=== PATIENT | male | born 1995 ===

== ENCOUNTER 2020-08-03 12:35 | Outpatient (REF) | payer SELFPAY | END 2020-08-03 12:36 | disposition home or self-care (01) | LOC: HO.LAB 12:35 | PROVIDERS: Visit Provider Internal Medicine | DX: Z20.828 Contact with and (suspected) exposure to other viral communicable diseases (principal) | CPT/HCPCS: C9803; U0003 ==

== ENCOUNTER 2020-08-16 10:58 | Outpatient (REF) | payer SELFPAY | END 2020-08-16 10:59 | disposition home or self-care (01) | LOC: HO.LAB 10:58 | PROVIDERS: Visit Provider Internal Medicine | DX: Z20.828 Contact with and (suspected) exposure to other viral communicable diseases (principal) | CPT/HCPCS: C9803; U0003 ==

== ENCOUNTER 2022-05-13 05:51 | Emergency (ER) | payer SELFPAY ==
--- NOTE | ~2022-05-13 | XR_ITS ---
EXAMINATION: XR WRIST, RIGHT CLINICAL INFORMATION: Pain and swelling COMPARISON: None TECHNIQUE: PA, lateral, and oblique views of the right wrist. FINDINGS: No fracture or dislocation. The carpal rows are well aligned. Joint spaces are maintained. The soft tissues appear unremarkable. XR/XR wrist RT 2V IMPRESSION: No fracture or malalignment.
[2022-05-13 06:27] VITALS: BP 126/75; PULSE 58; RESP 16; TEMP 36.5; O2SAT 97; BMI 26.3
--- NOTE | 2022-05-13 09:20 | ED_ITS ---
HPI - Extremity Problem General Chief complaint: Extremity Injury, Upper Stated complaint: r wrist inj Time Seen by Provider: 05/13/22 09:19 Source: patient Mode of arrival: ambulatory Limitations: no limitations History of Present Illness HPI Narrative: Patient presents emergency department for evaluation of right wrist pain and swelling. 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 Denies numbness or tingling. He states that the swelling has actually come down some with the use of ice. The pain is now intermittent. MD Complaint: extremity pain and extremity swelling Onset (ago): day(s) Pain Consistency: intermittent Location: right and upper extremity Severity scale (1-10): 2 Quality: aching Radiation: none Relieving factors: cold therapy Exacerbating factors: range of motion Associated symptoms: denies other symptoms Related Data Allergies Allergy/AdvReac Type Severity Reaction Status Date / Time No Known Allergies Allergy Unverified 05/13/22 06:27 Review of Systems Review of Systems: Musculoskeletal: Positive wrist pain Yes all other systems are reviewed and are negative PMFSH Past Medical History Attestation statement: The following information was validated with the patient. Source: old records reviewed Social History Social History Advance Directives: No Advance Directives Information Provided: No Physical Exam Vital Signs: Vital Signs: Last Vital Signs Temp 97.7 F 05/13/22 06:27 Pulse 58 05/13/22 06:27 Resp 16 05/13/22 06:27 BP 126/75 05/13/22 06:27 Pulse Ox 97 05/13/22 06:27 O2 Del Method 05/13/22 06:27 BMI result Body Mass Index 26.3 Vital signs have been reviewed as normal and appeared to be correct. Blood pressure normal.? Heart rate normal.? Respiration rate normal. Temperature normal.? Oxygen saturation normal. Appearance: Alert.?Oriented to person, place and time. No acute distress.?Normal affect. Neck: Normal inspection.? Neck supple.?? CVS: Heart sounds normal. Normal heart rate and rhythm.? Pulses normal.?? Respiratory: No respiratory distress.? Lung sounds clear to auscultation bilater ally?? Abdomen: Soft and non-tender. Skin: Skin warm and dry.? Normal skin color.? Extremities: No lower extremity edema.? Localized swelling and tenderness to on a dorsal forearm dressed superior to the wrist Neuro: Moves all extremities spontaneously. Sensation intact bilaterally. No motor deficits Ambulates with normal steady gait. Course Course Course Narrative: Patient is a 26-year-old male who presents emergency department for evaluation of traumatic right wrist pain. XR reveals no acute fracture dislocation. Neurovascularly intact distally. Mild localized swelling and tenderness upon palpation. Consistent with sprain of the wrist. Discussed rest, ice, compression with Paul bandage, Tylenol/ibuprofen as needed for pain. Discussed worrisome signs and symptoms to return back to emergency department for. Outpatient follow-up with his primary care provider as needed. Patient verbalized understanding was discharged home in stable condition. MDM - Extremity (Nontraumatic) Medical Records Attestation: I reviewed the patient's medical records. Imaging Data wrist XR: Radiologist's impression: XR/XR wrist RT 2V IMPRESSION: No fracture or malalignment. Discharge Plan Discharge Clinical Impression: Sprain and strain of wrist Patient Disposition: Home, Self-Care Instructions: Wrist Sprain (ED) Additional Instructions: Apply ice, use Paul bandage for compression, You can take ibuprofen 200 mg, 3 tablets (600mg) every 6-8 hours as needed for pain, in addition to Tylenol 500 mg, 2 tablets (1,000mg) every 4-6 hours as needed for pain, but not to exceed 3 doses daily (3,000mg).? Return to the emergency department any new or worsening symptoms or concerns
== END 2022-05-13 09:59 | disposition home or self-care (01) ==
PROVIDERS: Emergency Provider Emergency Medicine
DX: S66.911A Strain of unspecified muscle, fascia and tendon at wrist and hand level, right hand, initial encounter (principal); S63.501A Unspecified sprain of right wrist, initial encounter; X50.0XXA Overexertion from strenuous movement or load, initial encounter; Y93.89 Activity, other specified; Y92.039 Unspecified place in apartment as the place of occurrence of the external cause; Y99.9 Unspecified external cause status
CPT/HCPCS: 73100; 99283

== ENCOUNTER 2024-02-04 02:02 | Emergency (ER) | payer OTHER, SELFPAY ==
--- NOTE | 2024-02-04 | ECG_ITS ---
Test Reason : CHEST PAIN Blood Pressure : / mmHG Vent. Rate : 071 BPM Atrial Rate : 071 BPM P-R Int : 164 ms QRS Dur : 074 ms QT Int : 372 ms P-R-T Axes : 013 -12 -05 degrees QTc Int : 404 ms Normal sinus rhythm Minimal voltage criteria for LVH, may be normal variant ( R in aVL ) Borderline ECG No previous ECGs available Referred By: Generic ED Physician Electronically Signed By:RONNIE POP MD
--- NOTE | ~2024-02-04 | XR_ITS ---
EXAMINATION: XR CHEST CLINICAL INFORMATION: Chest pain. COMPARISON: None available. TECHNIQUE: Frontal view of the chest was obtained. FINDINGS: No significant abnormality is noted involving the heart, lungs, mediastinum, bony thorax or soft tissues. XR/XR chest 1V IMPRESSION: Unremarkable examination.
[2024-02-04 02:10] VITALS: BP 122/82; PULSE 70; RESP 18; TEMP 36.6; O2SAT 99; BMI 26.0
[2024-02-04 02:29] LABS: Basophils Percent Auto 0.3 % (0-2); Eosinophils Absolute Auto 0.4 X10*3/uL (0.0-0.4); Eosinophils Percent Auto 4.6 % (0-4); Hematocrit 41.7 % (42.0-52.0); Imm Gran Abs Auto 0.02 X10*3/uL (0.00-0.03); Imm Gran Pct Auto 0.2 % (0.0-0.4); Lymphocytes Absolute Auto 3.7 X10*3/uL (1.2-4.9); Lymphocytes Percent Auto 40.7 % (20-40); MANUAL DIFF FLAG NO; Mean Corpuscular Hemoglobin 30.3 pg (27.0-33.0); Mean Corpuscular Volume 84.2 fL (80.0-98.0); Mean Platelet Volume 9.3 fL (9.4-12.4); Monocytes Absolute Auto 0.9 X10*3/uL (0.1-1.2); Neutrophils Percent Auto 44.2 % (45-73); Platelet Count 317 X10*3/uL (160-400); Red Blood Count 4.95 X10*6/uL (4.60-5.80); Red Cell Distribution Width 12.8 % (11.0-16.0); White Blood Count 9.2 X10*3/uL (4.8-10.8)
[2024-02-04 02:45] LABS: Alanine Aminotransferase 25 U/L (0-40); Albumin Level 4.5 g/dL (3.5-5.0); Alkaline Phosphatase 75 U/L (39-117); Anion Gap 19 (12-20); Aspartate Amino Transferase 17 U/L (5-37); Bilirubin Total 0.4 mg/dL (0.0-1.0); Blood Urea Nitrogen 13 mg/dL (9-16); Calcium 9.8 mg/dL (8.4-10.2); Carbon Dioxide 18 mmol/L (22-29); Chloride 107 mmol/L (96-108); Creatinine Clr Calc Pharmacy 109.9; Estimated Glomerular Filt Rate > 60; Glucose Random 130 mg/dL (60-115); Potassium 3.6 mmol/L (3.3-5.1); Sodium 140 mmol/L (135-145); Total Protein 7.3 g/dL (6.5-8.0)
[2024-02-04 03:09] LABS: Troponin-I High Sensitivity < 2.7 ng/L (<3.5-35.0)
[2024-02-04 03:22] VITALS: PULSE 65
--- NOTE | 2024-02-04 03:57 | ED.CHESTPAIN ---
HPI - Chest Pain General Chief Complaint: Chest Pain Stated Complaint: Chest Pain Time Seen by Provider: 02/04/24 03:48 Source: patient Mode of arrival: ambulatory Limitations: no limitations History of Present Illness HPI narrative: worsening heartburn recently started with another episode today at around 545pm worsened throughout the night creeped up into the chest and then into the back vomited x 1. he tries tums with some relief has multiple episodes of GERD a week but not on medications, has sig fam hx of esophageal cancer, is feeling better now, no recent travel or procedures, no drug abuse MD complaint: chest pain Onset (ago): day(s) (few days but worse today at 5pm) Timing of current episode: episodic Prior episodes: Yes Onset: during rest Pain location: left chest and right chest Pain radiation: back Severity: moderate Quality: aching and burning Relieving factors: nothing Exacerbating factors: eating Associated symptoms: nausea and vomiting Treatment prior to arrival: none Related Data Previous Rx's ?Medication ?Instructions ?Recorded omeprazole 20 mg capsule,delayed 20 mg PO BID #60 caps 02/04/24 release Allergies Allergy/AdvReac Type Severity Reaction Status Date / Time No Known Allergies Allergy Verified 02/04/24 02:12 Review of Systems Review of Systems: Constitutional : No Weight loss, No Fever, No Chills ENT/Mouth : No sore throat, No Rhinorrhea Eyes: No Eye Pain, No Swelling Cardiovascular : pos Chest Pain, pos SOB, no Dyspnea on Exertion, No Orthopnea, No Edema, No Palpitations Respiratory : No Cough, No Sputum Gastrointestinal : pos Nausea, No Vomiting, No Diarrhea, No abdominal Pain, No Hematochezia, No Melena Genitourinary : No Dysuria, No Urinary Frequency Musculoskeletal : No joint pain, No Myalgias, No Joint Swelling Skin : No Skin Lesions, No rash Neuro : No Weakness, No Numbness, No Dizziness, No Headache All other systems reviewed and are negative PMFSH Past Medical History Attestation statement: The following information was validated with the patient. Source: old records reviewed Medical History (Updated 02/04/24 @ 04:32 by Mary Matamoros DO) GERD (gastroesophageal reflux disease) Social History Social History Smoked in Last 30 Days: No Use of substances other than those prescribed or required for medical reasons: No Advance Directives: No Advance Directives Information Provided: No Do you have a plan to hurt others: No Plan Physical Exam Vital Signs: Vital Signs: Last Vital Signs Temp 97.8 F 02/04/24 04:02 Pulse 94 02/04/24 04:02 Resp 12 02/04/24 04:02 BP 121/77 02/04/24 04:02 Pulse Ox 95 02/04/24 04:02 O2 Del Method Room Air 02/04/24 04:02 BMI result Body Mass Index 26.0 Appearance: Alert. Oriented X3. No acute distress. Eyes: Pupils equal, round and reactive to light. ENT: Pharynx normal. Neck: Normal inspection. Neck supple. CVS: Normal heart rate and rhythm. Pulses normal. bounding symmetric pulses both radial, femoral and DP/PT pulses. Respiratory: No respiratory distress. Breath sounds normal. Abdomen: Soft and nontender. Skin: Skin warm and dry. Normal skin color. Normal skin turgor. Extremities: No lower extremity edema. No calf ttp Neuro: Oriented X 3. No motor deficit. No sensory deficit. Medical Decision Making Medical Decision Making [facility] Narrative: 28 yo male with recent increased in GERD today around 5pm developed worsening heartburn then it worsened throughout the day radiated to the back and he threw up and felt short of breath he has no ACS risk factors, he is PERC negative, distal pulses intact doubt dissection. He is not toxic appearing and looks better has strong fam hx of GERD and esophageal cancer at this time will need EKG, CXR, trop and start on PPI. He was also referred to GI given fam hx. Does not take NSAIDs Differential Diagnosis Differential Diagnoses: The differential diagnosis associated with the presentation includes gerd, gastritis, doubt ACS or VTE Admission/Observation Consideration of admission/observation: Escalation of care including admission/observation considered work up negative feels better stable for DC Lab Data [facility] Lab Attestation statement: I reviewed the patient's lab results. 02/04/24 02:25 02/04/24 02:25 Labs: Lab Results 02/04/24 Range/Units 02:25 WBC 9.2 (4.8-10.8) X10*3/uL RBC 4.95 (4.60-5.80) X10*6/uL Hgb 15.0 (14.0-18.0) g/dl Hct 41.7 L (42.0-52.0) % MCV 84.2 (80.0-98.0) fL MCH 30.3 (27.0-33.0) pg MCHC 36.0 (31.0-36.0) g/dl RDW 12.8 (11.0-16.0) % Plt Count 317 (160-400) X10*3/uL MPV 9.3 L (9.4-12.4) fL Immature Gran % (Auto) 0.2 (0.0-0.4) % Neut % (Auto) 44.2 L (45-73) % Lymph % (Auto) 40.7 H (20-40) % Stephens % (Auto) 10.0 (2-11) % Eos % (Auto) 4.6 H (0-4) % Baso % (Auto) 0.3 (0-2) % Lymph # (Auto) 3.7 (1.2-4.9) X10*3/uL Stephens # (Auto) 0.9 (0.1-1.2) X10*3/uL Eos # (Auto) 0.4 (0.0-0.4) X10*3/uL Baso # (Auto) 0.0 (0.0-0.2) X10*3/uL Abs Immat Gran (auto) 0.02 (0.00-0.03) X10*3/uL Absolute Neuts (auto) 4.0 (2.0-8.3) x10*3/uL Absolute Nucleated RBC 0.000 (0.0-0.012) X10*3/uL Nucleated RBC % (auto) 0.0 (0.0-0.2) /100WBC Sodium 140 (135-145) mmol/L Potassium 3.6 (3.3-5.1) mmol/L Chloride 107 (96-108) mmol/L Carbon Dioxide 18 L (22-29) mmol/L Anion Gap 19 (12-20) BUN 13 (9-16) mg/dL Creatinine 1.00 (0.5-1.4) mg/dL Estim Creat Clear Calc 109.9 Estimated GFR > 60 Random Glucose 130 H (60-115) mg/dL Calcium 9.8 (8.4-10.2) mg/dL Total Bilirubin 0.4 (0.0-1.0) mg/dL AST 17 (5-37) U/L ALT 25 (0-40) U/L Alkaline Phosphatase 75 (39-117) U/L Troponin I High Sens < 2.7 (<3.5-35.0) ng/L Total Protein 7.3 (6.5-8.0) g/dL Albumin 4.5 (3.5-5.0) g/dL Lipase 40 (8-78) U/L Independent Interpretation I performed an independent interpretation of an: EKG and Plain X-Ray (normal ) Interpretation: Rate: 71 Rhythm: NSR Boyds: left - LVH Normal P waves. Normal DIPTI. Normal QRS complex. ST T wave : no TRESA, inverted t waves III qTC: 404 prior studies: no acute ischemia The study has been interpreted contemporaneously by me. . Radiology Impression Discussion of test interpretation with radiology: I have reviewed the radiologist's reading. Independent Historian Clinical information obtained from an independent historian. History obtained from or confirmed by: Spouse Prescription Management I considered prescription management with: Other Discharge Plan Discharge Clinical Impression: GERD with esophagitis Patient Disposition: Home, Self-Care Instructions: Diet for Stomach Ulcers and Gastritis (ED), Gastroesophageal Reflux Disease (ED) Additional Instructions: avoid motrin aleve ibuprofen it is okay to take tylenol stay upright for 1 hour after eating take the medications daily follow up with GI doctor return for any worsening symptoms or concerns. Prescriptions: New omeprazole 20 mg capsule,delayed release(DR/EC) 20 mg PO BID Qty: 60 0RF Referrals: Lianet Mayes MD [Physician] - (GI doctor need to call to get appointment) Stand Alone Forms: Work/School Release Print Language: Faroese
[2024-02-04 03:58] LABS: Lipase 40 U/L (8-78)
[2024-02-04 04:02] VITALS: BP 121/77; PULSE 94; RESP 12; TEMP 36.6; O2SAT 95
[2024-02-04] MEDS: Omeprazole 20 MG CAPSULE.DR PO (04:38)
[2024-02-04] MEDS: Magnesium Hydrox/Alum Hydrox 30 ML ORAL.SUSP 15 ML PO (04:38)
[2024-02-04] MEDS: Lidocaine HCl Viscous 2 % 15 ML SOLUTION MUCOUS MEM (04:38)
[2024-02-04 04:47] VITALS: BP 121/77; PULSE 94; RESP 12; TEMP 36.6; O2SAT 95
== END 2024-02-04 04:48 | disposition home or self-care (01) ==
PROVIDERS: Emergency Provider Emergency Medicine
DX: K21.01 Gastro-esophageal reflux disease with esophagitis, with bleeding (principal); R07.9 Chest pain, unspecified; R11.10 Vomiting, unspecified; R12 Heartburn
CPT/HCPCS: 36415; 71045; 80053; 83690; 84484; 85025; 93005; 99283; 99284

== ENCOUNTER → 2024-02-04 02:03 | Outpatient (BNV) | payer SELFPAY | PROVIDERS: Emergency Provider Emergency Medicine; Visit Provider Internal Medicine Cardiovascular Disease | DX: R07.9 Chest pain, unspecified (principal) | CPT/HCPCS: 93010 ==

== ENCOUNTER 2024-09-03 08:03 | Emergency (ER) | payer SELFPAY ==
--- NOTE | ~2024-09-03 | XR_ITS ---
EXAMINATION: XR RIBS, RIGHT CLINICAL INFORMATION: atraumic right lower rib pain COMPARISON: Chest radiograph 02/04/2024. TECHNIQUE: AP chest, 6 views right ribs. FINDINGS: Lungs are clear. No consolidation, pneumothorax, or pleural effusion. The cardiomediastinal silhouette and pulmonary vasculature are normal. Osseous structures are unremarkable. Ribs are intact. No fractures are identified. XR/XR ribs RT min 3V w CXR1V IMPRESSION: No acute findings in the thorax. No rib fractures evident. Electronically signed by: Germain Ingram MD 09/03/2024 12:37 PM [facility]
--- NOTE | ~2024-09-03 | CT_ITS ---
EXAMINATION: CT ABDOMEN AND PELVIS WITHOUT CONTRAST CLINICAL INFORMATION: Right upper quadrant pain. COMPARISON: None available. TECHNIQUE: Multidetector volumetric imaging was performed from the superior aspect of the liver through the pubic symphysis. Sagittal and coronal reformatted images were obtained on the technologist's workstation. This CT examination was performed using dose optimization techniques as appropriate, variously including the following: *Automated exposure control *Adjustment of mA and/or kV according to patient size (this includes techniques or standardized protocols for targeted exams where dose is matched to indication/reason for exam; i.e. extremities or head) *Use of iterative reconstruction technique DLP: 548 mGy-cm FINDINGS: Limited examination of the intra-abdominal organs and vascular structures due to lack of IV contrast. LUNG BASES: No acute airspace disease or gross pulmonary nodules in the included lungs. Focal patchy groundglass, lingula. LIVER, GALLBLADDER, AND BILIARY TREE: Liver measures 14 cm. 4 mm hypodensity in the anterior right hepatic lobe. No intrahepatic biliary ductal dilatation. Fluid-filled gallbladder without pericholecystic fluid collection or gallbladder wall thickening. No extrahepatic biliary ductal dilatation. PANCREAS: No peripancreatic fluid collections. No main pancreatic ductal dilatation. SPLEEN: 8 cm. ADRENAL GLANDS: No nodular lesions. KIDNEYS AND URETERS: No hydronephrosis or nephrolithiasis. BLADDER: Fluid-filled. GASTROINTESTINAL TRACT: Appendix is normal. Abundant stool. There is swirling of the mesentery and in the periumbilical region. Gas and fluid-filled mildly prominent degenerative loops.. No pneumoperitoneum. No pneumatosis intestinalis. ABDOMINAL WALL: Small fat-containing umbilical hernia. LYMPH NODES: No lymphadenopathy. VASCULAR: No aneurysm, abdominal aorta. PELVIC VISCERA: Normal-sized prostate gland and seminal vesicles. OSSEOUS STRUCTURES: A S-shaped curvature of the lumbar spine. No acute fracture or listhesis in the axial skeleton. Bony pelvis coxofemoral joints are intact. 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 No listhesis. CT/CT abdomen pelvis wo IV con IMPRESSION: Concerning internal hernia resulting in partial/intermittent mid to distal small bowel obstruction. 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 Fleischner guidelines were followed. Electronically signed by: Mahendra Pelayo MD 09/03/2024 12:53 PM EST
[2024-09-03 08:10] VITALS: BP 129/89; PULSE 60; RESP 16; TEMP 36.6; O2SAT 100; BMI 26.9
[2024-09-03 08:39] LABS: MANUAL DIFF FLAG NO
[2024-09-03 08:42] LABS: Basophils Percent Auto 0.3 % (0-2); Eosinophils Absolute Auto 0.4 X10*3/uL (0.0-0.4); Eosinophils Percent Auto 5.5 % (0-4); Hematocrit 44.7 % (42.0-52.0); Hemoglobin 16.1 g/dl (14.0-18.0); Imm Gran Abs Auto 0.02 X10*3/uL (0.00-0.03); Imm Gran Pct Auto 0.3 % (0.0-0.4); Lymphocytes Absolute Auto 1.3 X10*3/uL (1.2-4.9); Mean Corpuscular Hemoglobin 30.8 pg (27.0-33.0); Mean Corpuscular Volume 85.5 fL (80.0-98.0); Mean Platelet Volume 9.8 fL (9.4-12.4); Monocytes Absolute Auto 0.5 X10*3/uL (0.1-1.2); Monocytes Percent Auto 6.7 % (2-11); Neutrophils Absolute Auto 5.1 x10*3/uL (2.0-8.3); Neutrophils Percent Auto 69.2 % (45-73); Platelet Count 301 X10*3/uL (160-400); Red Blood Count 5.23 X10*6/uL (4.60-5.80); Red Cell Distribution Width 12.8 % (11.0-16.0); White Blood Count 7.4 X10*3/uL (4.8-10.8)
[2024-09-03 08:55] LABS: Anion Gap 10 (12-20); Blood Urea Nitrogen 9 mg/dL (9-16); Carbon Dioxide 27 mmol/L (22-29); Chloride 107 mmol/L (96-108); Creatinine Clr Calc Pharmacy 106.5; Estimated Glomerular Filt Rate > 60; Potassium 4.3 mmol/L (3.3-5.1); Sodium 140 mmol/L (135-145)
[2024-09-03 08:56] LABS: Alanine Aminotransferase 54 U/L (0-40); Albumin Level 4.8 g/dL (3.5-5.0); Alkaline Phosphatase 81 U/L (39-117); Aspartate Amino Transferase 32 U/L (5-37); Bilirubin Direct 0.2 mg/dL (0.0-0.5); Bilirubin Total 0.5 mg/dL (0.0-1.0); Calcium 9.5 mg/dL (8.4-10.2); Glucose Random 106 mg/dL (60-115); Total Protein 7.7 g/dL (6.5-8.0)
--- NOTE | 2024-09-03 10:14 | ED_ITS ---
HPI - Abdominal Pain General Chief Complaint: Abdominal Pain Stated Complaint: abd pain rad into back Time Seen by Provider: 09/03/24 09:31 Source: patient Mode of arrival: ambulatory Limitations: no limitations History of Present Illness ED Provider: REESE AMAYA PA-C HPI narrative: 29-year-old male with pmhx significant for GERD presents to the ED today for evaluation of right sided back pain beginning at 1999 last night. States he was lying in bed when he felt a spasm sensation to the right side of his back over his lower rib area. Admits to eating [place] fries an hour before symptom onset. Since this time, pain is now radiating to his right upper quadrant, just under his ribs. Pain is now sharp in character. He rates it a 7/10 currently. Endorses nausea without vomiting. His last bowel movement was yesterday around 6:00 p.m.. He has intermittently been passing flatus. Denies EtOH consumption. No history of similar. Denies any history of abdominal surgeries. Denies any trauma to the area. Denies fever, chills, N/V, diarrhea, constipation, dysuria, hematuria, chest pain, shortness of breath. Related Data Previous Rx's ?Medication ?Instructions ?Recorded omeprazole 20 mg capsule,delayed 20 mg PO BID #60 caps 02/04/24 release ondansetron 4 mg disintegrating 4 mg PO DAILY PRN nausea and 09/03/24 tablet vomiting 5 days #7 tabs Allergies Allergy/AdvReac Type Severity Reaction Status Date / Time No Known Allergies Allergy Verified 09/03/24 08:13 Review of Systems Review of Systems Yes all other systems are reviewed and are negative PMFSH Past Medical History Attestation statement: The following information was validated with the patient. Source: old records reviewed and nursing notes reviewed Medical History GERD (gastroesophageal reflux disease) Physical Exam ED Vital Signs: Vital Signs - 24 hr 09/03/24 08:10 09/03/24 13:21 09/03/24 13:49 Temperature 98 F 98.1 F 98.1 F Pulse Rate 60 60 60 Respiratory Rate 16 16 16 Blood Pressure 129/89 136/92 H 136/92 H Pulse Oximetry 100 100 100 Oxygen Delivery Method Room Air Room Air Room Air BMI result Body Mass Index 26.9 vital signs stable General: Well appearing, in no acute distress. Skin: Warm, dry, intact. No rashes or lesions. Head: Normocephalic, atraumatic. EENT: Hearing is intact b/l. Conjunctiva clear. PERRLA. EOM intact. Moist mucous membranes.? Neck: Supple without LAD Cardiac: Chest wall symmetric. RRR Lungs: Normal respiratory effort without accessory muscle use. CTA bilaterally Abdomen: Soft, non-tender, non-distended. No rebound tenderness or guarding. Positive BS x4. Negative Weber's sign. Back: No midline spinous or paraspinal tenderness. No step off deformity. Ext: Upper and lower extremities atraumatic, without tenderness, deformity, swelling or erythema. Full ROM throughout. Neuro: AOx3. Normal speech. Ambulating with steady gait. Psych: Appropriate mood and affect. Responds appropriately to questions. Course Course Course Narrative: CBC without leukocytosis or left shift. No anemia. H&H stable. Chemistry without acute electrolyte abnormality requiring intervention. No SUBHASH. Liver function at baseline. Lipase WNL. Pancreatitis unlikely. Urine is negative for infection. Chest x-ray does not demonstrate rib fracture or pneumonia. CT abdomen/pelvis showing concerning internal hernia resulting in partial/intermittent mid to distal small bowel obstruction. There is swirling of the mesentery and in the periumbilical region. Gas and fluid-filled mildly prominent loops. Abundant stool. Appendix is normal. No nephrolithiasis or hydronephrosis. > I did reach out to on-call general surgeon, Dr. Bonds. He reviewed imaging and was at bedside to evaluate patient. Patient's exam is benign. He is not ill-appearing. He has been passing bowel movements and gas. Dr. Bonds does not believe this is a true bowel obstruction and states the likelihood is extremely low. He did present patient with 2 options -observation overnight or discharge home. Patient has opted to be discharged home at this time with strict return precautions. He reports almost complete resolution of pain after receiving Toradol in the ED. I educated patient on worrisome signs and symptoms and when to return to the ED. He verbalizes understanding. Marthafran has been sent to pharmacy for him to take as needed for nausea. Advised him to take ibuprofen and Tylenol at home for pain. Patient has remained stable throughout ED visit today. All questions answered at this time. Patient is agreeable with disposition and stable for discharge. Medical Decision Making Medical Decision Making [facility] Narrative: 29-year-old male with pmhx significant for GERD presents to the ED today for evaluation of right sided back pain beginning at 2000 last night. Vital signs stable. Exam is unremarkable. There is no reproducible chest wall tenderness. No palpable deformity. Negative Weber's sign. Differential diagnosis includes biliary colic, renal colic, nephrolithiasis, gastroenteritis, UTI. Abdominal exam without peritoneal signs. No evidence of acute abdomen at this time. Well appearing. Moderate suspicion for acute hepatobiliary disease (including acute cholecystitis). Less likely to represent acute pancreatitis, PUD (including perforation), acute infectious processes (pneumonia, hepatitis, pyelonephritis), atypical appendicitis, vascular catastrophe, bowel obstruction or viscus perforation. Presentation not consistent with other acute, emergent causes of abdominal pain at this time. Plan: labs, UA, pain control, CXR, CT ap, serial reassessment Differential Diagnosis Differential Diagnoses: The differential diagnosis associated with the presentation includes As above Admission/Observation Not indicated Lab Data [facility] Lab Attestation statement: I reviewed the patient's lab results. As above 09/03/24 08:19 09/03/24 08:31 Labs: Lab Results 09/03/24 09/03/24 09/03/24 Range/Units 08:19 08:31 12:59 WBC 7.4 (4.8-10.8) X10*3/uL RBC 5.23 (4.60-5.80) X10*6/uL Hgb 16.1 (14.0-18.0) g/dl Hct 44.7 (42.0-52.0) % MCV 85.5 (80.0-98.0) fL MCH 30.8 (27.0-33.0) pg MCHC 36.0 (31.0-36.0) g/dl RDW 12.8 (11.0-16.0) % Plt Count 301 (160-400) X10*3/uL MPV 9.8 (9.4-12.4) fL Immature Gran % (Auto) 0.3 (0.0-0.4) % Neut % (Auto) 69.2 (45-73) % Lymph % (Auto) 18.0 L (20-40) % [place] % (Auto) 6.7 (2-11) % Eos % (Auto) 5.5 H (0-4) % Baso % (Auto) 0.3 (0-2) % Lymph # (Auto) 1.3 (1.2-4.9) X10*3/uL [place] # (Auto) 0.5 (0.1-1.2) X10*3/uL Eos # (Auto) 0.4 (0.0-0.4) X10*3/uL Baso # (Auto) 0.0 (0.0-0.2) X10*3/uL Abs Immat Gran (auto) 0.02 (0.00-0.03) X10*3/uL Absolute Neuts (auto) 5.1 (2.0-8.3) x10*3/uL Absolute Nucleated RBC 0.000 (0.0-0.012) X10*3/uL Nucleated RBC % (auto) 0.0 (0.0-0.2) /100WBC Sodium 140 (135-145) mmol/L Potassium 4.3 (3.3-5.1) mmol/L Chloride 107 (96-108) mmol/L Carbon Dioxide 27 (22-29) mmol/L Anion Gap 10 L (12-20) BUN 9 (9-16) mg/dL Creatinine 0.99 (0.5-1.4) mg/dL Estim Creat Clear Calc 106.5 Estimated GFR > 60 Random Glucose 106 (60-115) mg/dL Calcium 9.5 (8.4-10.2) mg/dL Total Bilirubin 0.5 (0.0-1.0) mg/dL Direct Bilirubin 0.2 (0.0-0.5) mg/dL AST 32 (5-37) U/L ALT 54 H (0-40) U/L Alkaline Phosphatase 81 (39-117) U/L Total Protein 7.7 (6.5-8.0) g/dL Albumin 4.8 (3.5-5.0) g/dL Lipase 22 (8-78) U/L Urine Color Yellow Urine Appearance Clear Urine pH 7.0 (5.0-9.0) Ur Specific [place] 1.015 (1.005-1.025) Urine Protein Negative (Neg-Trace) mg/dL Urine Glucose (UA) Negative (Negative) mg/dL Urine Ketones Negative (Negative) mg/dL Urine Blood Negative (Negative) Urine Nitrite Negative (Negative) Ur Leukocyte Esterase Negative (Negative) Independent Interpretation I performed an independent interpretation of an: Plain X-Ray and CT Scan Interpretation: CT abdomen/pelvis with swirling of the mesentary Chest/ rib XR without rib fracture Radiology Impression Discussion of test interpretation with radiology: I have reviewed the radiologist's reading. Radiologist Impression: EXAMINATION: CT ABDOMEN AND PELVIS WITHOUT CONTRAST CLINICAL INFORMATION: Right upper quadrant pain. COMPARISON: None available. TECHNIQUE: Multidetector volumetric imaging was performed from the superior aspect of the liver through the pubic symphysis. Sagittal and coronal reformatted images were obtained on the technologist's workstation. This CT examination was performed using dose optimization techniques as appropriate, variously including the following: *Automated exposure control *Adjustment of mA and/or kV according to patient size (this includes techniques or standardized protocols for targeted exams where dose is matched to indication/reason for exam; i.e. extremities or head) *Use of iterative reconstruction technique DLP: 548 mGy-cm FINDINGS: Limited examination of the intra-abdominal organs and vascular structures due to lack of IV contrast. LUNG BASES: No acute airspace disease or gross pulmonary nodules in the included lungs. Focal patchy groundglass, lingula. LIVER, GALLBLADDER, AND BILIARY TREE: Liver measures 14 cm. 4 mm hypodensity in the anterior right hepatic lobe. No intrahepatic biliary ductal dilatation. Fluid-filled gallbladder without pericholecystic fluid collection or gallbladder wall thickening. No extrahepatic biliary ductal dilatation. PANCREAS: No peripancreatic fluid collections. No main pancreatic ductal dilatation. SPLEEN: 8 cm. ADRENAL GLANDS: No nodular lesions. KIDNEYS AND URETERS: No hydronephrosis or nephrolithiasis. BLADDER: Fluid-filled. GASTROINTESTINAL TRACT: Appendix is normal. Abundant stool. There is swirling of the mesentery and in the periumbilical region. Gas and fluid-filled mildly prominent degenerative loops.. No pneumoperitoneum. No pneumatosis intestinalis. ABDOMINAL WALL: Small fat-containing umbilical hernia. LYMPH NODES: No lymphadenopathy. VASCULAR: No aneurysm, abdominal aorta. PELVIC VISCERA: Normal-sized prostate gland and seminal vesicles. OSSEOUS STRUCTURES: A S-shaped curvature of the lumbar spine. No acute fracture or listhesis in the axial skeleton. Bony pelvis coxofemoral joints are intact. 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 No listhesis. CT/CT abdomen pelvis wo IV con IMPRESSION: Concerning internal hernia resulting in partial/intermittent mid to distal small bowel obstruction. 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 Fleischner guidelines were followed. Electronically signed by: Mahendra Pelayo MD 09/03/2024 12:53 PM EST RP EXAMINATION: XR RIBS, RIGHT CLINICAL INFORMATION: atraumic right lower rib pain COMPARISON: Chest radiograph 02/04/2024. TECHNIQUE: AP chest, 6 views right ribs. FINDINGS: Lungs are clear. No consolidation, pneumothorax, or pleural effusion. The cardiomediastinal silhouette and pulmonary vasculature are normal. Osseous structures are unremarkable. Ribs are intact. No fractures are identified. XR/XR ribs RT min 3V w CXR1V IMPRESSION: No acute findings in the thorax. No rib fractures evident. Electronically signed by: Germain Ingram MD 09/03/2024 12:37 PM EST RP External Record Review External record reviewed: Inpatient record Prescription Management I considered prescription management with: Pain Medication (Tylenol, ibuprofen) and Antibiotic (Zofran) Chronic Conditions Patient?s care impacted by: Other (GERD) Social Determinants Patient?s care significantly limited by Social Determinants of Health including: Other Social Determinant of Health Medications Administered Discontinued Medications Generic Name Dose Route Start Last Admin Trade Name Freq PRN Reason Stop Dose Admin Ketorolac Tromethamine 30 mg 09/03/24 10:00 09/03/24 10:17 Ketorolac Tromethamine 30 Mg/Ml Vial IM 09/03/24 10:01 30 mg ONCE ONE Administration Critical Care Time Critical Care Time Critical Care Time: No Discharge Plan Discharge Clinical Impression: Abdominal pain Patient Disposition: Home, Self-Care Instructions: Abdominal Pain (ED) Additional Instructions: Your blood work today is reassuring. Your urine is negative for infection. As discussed, the CT scan of your abdomen showed findings concerning for intermittent bowel obstruction. You were evaluated by our general surgeon Dr. Bonds who notes low suspicion for true obstruction given benign exam. You were given the option to stay for observation however you would like to be discharged home. I have sent marleni to your pharmacy for you to take as needed for nausea. I recommend you take 600mg ibuprofen every 6 hours or Tylenol 650mg every 6 hours as needed for pain. If needed, you can alternate these medications so that you take one medication every 3 hours. For example, at noon take ibuprofen, then at 3pm take Tylenol, then at 6pm take ibuprofen. Return to the ED immediately with any worsening pain, nausea, vomiting, inability to pass BM or gas. I have also provided you with a referral to our general surgeon for out patient follow up. Please call them to establish care, they will not call you. Follow up with your primary care provider as needed. In the case of an emergency call 911. Prescriptions: New ondansetron 4 mg tablet,disintegrating 4 mg PO DAILY PRN (Reason: nausea and vomiting) 5 Days Qty: 7 0RF No Action omeprazole 20 mg capsule,delayed release(DR/EC) 20 mg PO BID Qty: 60 0RF [place] [facility] [place] [facility] [place] [place],[facility] [Primary Care Provider] - Stand Alone Forms: Work/School Release Interventions: ED Discharge Assessment Last Done: 09/03/24 13:49 Discharge Date/Time: 09/03/24 13:52 Print Language: British
[2024-09-03] MEDS: Ketorolac Tromethamine 30 MG/ML VIAL IM (10:17)
[2024-09-03 10:49] LABS: Lipase 22 U/L (8-78)
[2024-09-03 13:11] LABS: Appearance Urine Clear; Color Urine Yellow; Glucose Urine UA Negative (Negative); Leukocyte Esterase Urine Negative (Negative); Nitrite Urine Negative (Negative); Specific Gravity - Urine 1.015 (1.005-1.025); Urine Blood Negative (Negative); Urine Ketones Negative (Negative); Urine Protein Negative (Neg-Trace)
[2024-09-03 13:21] VITALS: BP 136/92; PULSE 60; RESP 16; TEMP 36.7; O2SAT 100
--- NOTE | 2024-09-03 13:24 | P.CONGS_ITS ---
History of Present Illness Consult details Consult date: 09/03/24 <Shirley Foote PA-C - Last Filed: 09/03/24 13:43> Reason for consult: abdominal pain <CASIMIRO Schmidt Last Filed: 09/03/24 13:43> Narrative: Florin Lloyd is a 29-year-old male with PMH of GERD who presented to the ED with complaints of back and abdominal pain. Patient reports last night he developed mid back pain while laying in bed. He reports the pain spread to the right side and into the right/mid upper abdomen. It was sharp in nature. When the pain spread to his abdomen he got concerned and sought care in the ED. He denies trauma to the area, nausea, vomiting, distention, fever, chills, similar episodes of pain, recent viral illness. He is passing flatus normally. He denies any abd surgeries. He does weight train. Workup included CBC, BMP, LFTs which were WNL. CT scan abd pelvis was obtained which showed a very small segment of dilated small bowel loop with question of mesenteric swirling of the mesentery in the periumbilical region. No pneumoperitoneum, pneumatosis intestinalis, gallstones, GB wall thickening or pericholecystic fluid. He reports feeling better since arrival and reports pain is now only mild discomfort. <Shirley Foote PA-C - Last Filed: 09/03/24 13:43> Review of Systems 2 Review of Systems: Yes all other systems are reviewed and are negative < CASIMIRO Schmidt Last Filed: 09/03/24 13:43> [facility] Past Medical History Medical History: Medical History GERD (gastroesophageal reflux disease) <CASIMIRO Schmidt Last Filed: 09/03/24 13:43> Social History Social History: Social History Advance Directives: No Advance Directives Information Provided: No <CASIMIRO Schmidt Last Filed: 09/03/24 13:43> Meds Allergies/Adverse reactions: Allergies Allergy/AdvReac Type Severity Reaction Status Date / Time No Known Allergies Allergy Verified 09/03/24 08:13 <WILLIAM Schmidt [facility] Last Filed: 09/03/24 13:43> Physical Exam 2 Vital Signs: Vital Signs: Last Vital Signs Temp 98.1 F 09/03/24 13:21 Pulse 60 09/03/24 13:21 Resp 16 09/03/24 13:21 BP 136/92 H 09/03/24 13:21 Pulse Ox 100 09/03/24 13:21 O2 Del Method Room Air 09/03/24 13:21 BMI result Body Mass Index 26.9 <SEBASTIÁN Schmidt [facility] Last Filed: 09/03/24 13:43> Const: General: healthy appearing, comfortable, no acute distress and alert; No ill appearing <SEBASTIÁN Schmidt Last Filed: 09/03/24 13:43> Orientation/consciousness: patient oriented x3 <SEBASTIÁN Schmidt Last Filed: 09/03/24 13:43> Chest: Other: mild tenderness to palpation of right lower ribs <ShirleySEBASTIÁN Valenzuela [facility] Last Filed: 09/03/24 13:43> Chest palpation & inspection: normal inspection of the chest <SEBASTIÁN Schmidt Last Filed: 09/03/24 13:43> Resp: Effort & Inspection: normal respiratory effort [facility] Last Filed: 09/03/24 13:43> Cardio: Rate: regular rate <SEBASTIÁN Schmidt [facility] Last Filed: 09/03/24 13:43> GI: Inspection: Yes normal to inspection, No distended and No scar < SEBASTIÁN Schmidt [facility] Last Filed: 09/03/24 13:43> Palpation (GI): Soft to palpation, Tenderness to palpation present (GI) (very mild upper abdominal/RUQ tenderness) Weber's sign negative and with no rebound tenderness and no guarding <WILLIAM Schmidt [facility] Last Filed: 09/03/24 13:43> Back/Spine/Pelvis: Back: back tenderness (midline and right side of mid back ) <Shirley Foote PA-C - Last Filed: 09/03/24 13:43> Skin: General skin exam: no rashes or lesions noted <CASIMIRO Schmidt Last Filed: 09/03/24 13:43> Neuro: General: patient oriented x3 and moves all extremities <CASIMIRO Schmidt Last Filed: 09/03/24 13:43> Results Labs Result diagrams: 09/03/24 08:19 09/03/24 08:31 <Shirley Foote PA-C - Last Filed: 09/03/24 13:43> Labs: Abnormal lab results 09/03/24 09/03/24 Range/Units 08:19 08:31 Lymph % (Auto) 18.0 L (20-40) % Eos % (Auto) 5.5 H (0-4) % Anion Gap 10 L (12-20) ALT 54 H (0-40) U/L Short CBC 09/03/24 Range/Units 08:19 WBC 7.4 (4.8-10.8) X10*3/uL Hgb 16.1 (14.0-18.0) g/dl Hct 44.7 (42.0-52.0) % Plt Count 301 (160-400) X10*3/uL BMP 09/03/24 08:31 Sodium 140 Potassium 4.3 Chloride 107 Carbon Dioxide 27 BUN 9 Creatinine 0.99 Calcium 9.5 Liver Function 09/03/24 Range/Units 08:31 Total Bilirubin 0.5 (0.0-1.0) mg/dL Direct Bilirubin 0.2 (0.0-0.5) mg/dL AST 32 (5-37) U/L ALT 54 H (0-40) U/L Alkaline Phosphatase 81 (39-117) U/L Albumin 4.8 (3.5-5.0) g/dL Urine 09/03/24 Range/Units 12:59 Urine Color Yellow Urine Appearance Clear Urine pH 7.0 (5.0-9.0) Ur Specific [place] 1.015 (1.005-1.025) Urine Protein Negative (Neg-Trace) mg/dL Urine Glucose (UA) Negative (Negative) mg/dL All other labs normal. <Shirley Foote PA-C - Last Filed: 09/03/24 13:43> Imaging Abdomen CT scan report/results: report reviewed and image reviewed <Shirley Foote PA-C - Last Filed: 09/03/24 13:43> Assessment and Plan (1) Abdominal pain: Status: Acute <Shirley Foote PA-C - Last Filed: 09/03/24 13:43> Actually complained more of back pain in right sided chest pain Denies any abdominal pain Denies any nausea or vomiting Feels well overall currently Abdomen is very soft and benign, nontender, nondistended I have reviewed his CAT scan - report mentions possible twisting mesentery but this seems to be very acute vocal Good amount of air distally including the colon No small bowel dilatation proximally Overall clinical findings and history do not suggest small bowel obstruction nor internal hernia Explained to the patient option of being admitted for observation If he wants to be discharge, I told him that there is always a small likelihood that this can findings may be real and that he may have abdominal pain eventually He wants to be discharged He says he does not have any abdominal pain Seen and examined independently <Nik Bonds MD - Last Filed: 09/03/24 13:47> 29-year-old male with PMH of GERD with acute onset of mid back/ right upper and epigastric abd pain last night. CT scan was obtained as part of the work up which incidentally noted possible periumbilical mesenteric swirling and very short segment of dilated small bowel loop. No gallstones, gallbladder wall thickening or fluid. His abdomen is very benign and nondistended without any peritoneal signs and he is without symptoms of obstruction. Overall picture is not suggestive of internal hernia. Furthermore he is clinically appearing well and has no leukocytosis. Discussed with the patient two options which include admission for observation given this finding on CT read or because of his benign presentation, discharge to home with PCP follow up with understanding of returning to ED if he develops worsening abd pain, nausea, vomiting, obstipation. He will decide and let us know. Discussed with ED staff. < Shirley Foote PA-C - Last Filed: 09/03/24 13:43> Procedures Date of Service Date of Service: 09/03/24 <Shirley Foote PA-C - Last Filed: 09/03/24 13:43> 09/03/24 <Nik Bonds MD - Last Filed: 09/03/24 13:47>
[2024-09-03 13:49] VITALS: BP 136/92; PULSE 60; RESP 16; TEMP 36.7; O2SAT 100
== END 2024-09-03 13:52 | disposition home or self-care (01) ==
PROVIDERS: Physician Assistant Medical; Emergency Provider Student in an Organized Health Care Education/Training Program
DX: R10.11 Right upper quadrant pain (principal); K21.9 Gastro-esophageal reflux disease without esophagitis; R07.81 Pleurodynia
CPT/HCPCS: 36415; 71101; 74176; 80048; 80076; 81003; 83690; 85025; 96372; 99283; 99284; J1885

== ENCOUNTER → 2024-09-03 08:33 | Outpatient (BNV) | payer OTHER, SELFPAY | PROVIDERS: Emergency Provider Student in an Organized Health Care Education/Training Program; Visit Provider Physician Assistant Surgical | DX: R10.9 Unspecified abdominal pain (principal) | CPT/HCPCS: 99283 ==

== ENCOUNTER → 2024-09-03 10:00 | Outpatient (BNV) | payer OTHER, SELFPAY | PROVIDERS: Emergency Provider Student in an Organized Health Care Education/Training Program; Visit Provider Radiology Diagnostic Radiology | DX: R10.11 Right upper quadrant pain (principal); R07.82 Intercostal pain | CPT/HCPCS: 71101; 74176 ==